=== PATIENT | female | born 1990 | race Caucasian/White ===

== ENCOUNTER 2018-08-12 05:38 | Inpatient (IN) ==
[2018-08-12] MEDS ORDERED: PEPCID IV PRN (05:44)
[2018-08-12] MEDS ORDERED: PEPCID PO ONE (05:44)
[2018-08-12] MEDS ORDERED: TYLENOL PO PRN (05:44)
[2018-08-12] MEDS ORDERED: REGLAN PO ONE (05:44)
[2018-08-12] MEDS ORDERED: STADOL IV PRN (05:44)
[2018-08-12] MEDS ORDERED: PEPCID PO PRN (05:44)
[2018-08-12] MEDS ORDERED: ZOFRAN IV PRN (05:44)
[2018-08-12] MEDS ORDERED: KEFZOL 1 GM/D5W 1 GM/50 ML IVPB IV PRN (05:44)
[2018-08-12] MEDS ORDERED: SODIUM CHLORIDE 0.9% INJ SCH (05:45)
[2018-08-12] MEDS ORDERED: PITOCIN 30 UNITS/NS 30 UNIT/500 ML IV.SOLN IV SCH ×2 (07:00→15:15)
[2018-08-12] MEDS: LR 1,000 ML IV SCH ×2 (07:40→08:45)
--- NOTE | 2018-08-12 08:06 | HISTORY AND PHYSICAL ---
HISTORY OF PRESENT ILLNESS: The patient is a 26-year-old white female, G 5, P 2, A 2, at 39 weeks and 1 day with a favorable cervix for induction of labor. care has been unremarkable. Group B strep culture was negative. PAST MEDICAL HISTORY: Alpha 1 antitrypsin antibody. PAST SURGICAL HISTORY: Cholecystectomy. PAST OB HISTORY: G 5, P 2, A 2, spontaneous vaginal delivery x2, spontaneous AB x2. 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 FAMILY HISTORY: Significant for diabetes mellitus. REVIEW OF SYSTEMS: Significant for migraines. SOCIAL HISTORY: Tobacco use: None. Alcohol use: None. MEDICATIONS: vitamins and iron. ALLERGIES: No known drug allergies. PHYSICAL EXAMINATION: VITAL SIGNS: Height 5 feet 7 inches, weight 191 pounds. Temperature 97.9 degrees, blood pressure 102/64, pulse of 72, respirations 20. heart rate in the 150s with positive accelerations. HEENT: Pupils equal, round, and reactive to light and accommodation. Extraocular movements intact. Oropharynx clear. NECK: Supple. No thyromegaly. LUNGS: Clear to auscultation. HEART: Regular rate and rhythm. ABDOMEN: Gravid, nontender. PELVIC: Cervix was 3.5, 50% -2 station. EXTREMITIES: No clubbing, cyanosis, or edema noted. NEUROLOGIC: Cranial nerves 2-12 grossly intact. Motor 5/5. DTRs 2+ bilaterally. ASSESSMENT/PLAN: A 26-year-old, 5, para 2, 2, at 39 and 1/7 weeks with favorable cervix for labor induction. The patient may have epidural and plan on a vaginal delivery. cc: Ethan Dominguez III, MD
[2018-08-12 08:10] LABS: BASO# 0.02 X1000 (0.0-0.2); BASO% 0.3 % (0.0-0.8); EOS# 0.26 X1000 (0.0-0.7); EOS% 3.4 % (0.0-10.0); HEMOGLOBIN 10.5 g/dL (12.0-16.0); IMM GRAN# 0.02 X1000 (0.0-0.04); IMM GRAN% 0.3 % (0.0-0.5); LYMPH# 2.02 X1000 (1.2-3.4); LYMPH% 26.4 % (20.5-51.1); MCH 28.5 PG (27-31); MCHC 32.8 g/dL (33-37); MCV 86.7 FL (81-99); MONO# 0.72 X1000 (0.11-0.59); MONO% 9.4 % (1.7-9.3); NEUT# 4.62 X1000 (1.4-6.5); NEUT% 60.2 % (42.2-75.2); PLT 117 X1000 (130-400); RBC 3.69 XMIL (4.2-5.4); RDW 14.3 % (11.5-14.5); WBC 7.66 X1000 (4.8-10.8)
[2018-08-12] MEDS ORDERED: NAROPIN 0.2% ONE (08:10)
[2018-08-12] MEDS ORDERED: FENTANYL-BUPIV-NS 2 MCG-0.1% 200 ML ONE (08:11)
[2018-08-12] MEDS ORDERED: FENTANYL-BUPIV-NS 2 MCG-0.1% 200 ML EPIDURAL SCH (09:00)
[2018-08-12] MEDS ORDERED: NAROPIN 0.2% INJ ONE (09:00)
[2018-08-12] MEDS ORDERED: MINERAL OIL TOP PRN (14:57)
[2018-08-12] MEDS ORDERED: XYLOCAINE-MPF 1% INJ PRN ×2 (14:57→15:13)
[2018-08-12] MEDS ORDERED: MINERAL OIL PO PRN (15:13)
[2018-08-12] MEDS ORDERED: AMBIEN PO PRN (15:13)
[2018-08-12] MEDS ORDERED: BOOSTRIX VACCINE IM ONE (15:13)
[2018-08-12] MEDS ORDERED: M-M-R II VACCINE SUBQ ONE (15:13)
[2018-08-12] MEDS ORDERED: BENADRYL IV PRN (15:13)
[2018-08-12] MEDS ORDERED: ATARAX PO PRN (15:13)
[2018-08-12] MEDS ORDERED: HYDROXYZINE IM PRN (15:13)
[2018-08-12] MEDS ORDERED: NORCO-5 PO PRN (15:13)
[2018-08-12] MEDS ORDERED: PITOCIN IM PRN (15:13)
[2018-08-12] MEDS ORDERED: PERI MEDS (DERMOPLAST/NUPERCAINAL/TUCKS) MISC PRN (15:13)
[2018-08-12] MEDS ORDERED: BENADRYL PO PRN (15:13)
[2018-08-12] MEDS ORDERED: CYTOTEC PO PRN (15:13)
[2018-08-12] MEDS ORDERED: PITOCIN 20 UNITS/NS 20 UNITS/1,000 ML IV.SOLN IV SCH (15:15)
--- NOTE | 2018-08-12 15:30 | OPERATIVE NOTE ---
PROCEDURE DATE: 08/12/2018 VAGINAL DELIVERY NOTE: Patient progressed to complete and pushing and had spontaneous vaginal delivery of a male , 6 pounds 15 ounces with 's of 9 and 10 at 1501 on 08/12/2018. Placenta delivered intact with 3 vessel cord. Cord blood samples obtained at this time. ESTIMATED BLOOD LOSS: 150 mL. ANESTHESIA: Epidural. COUNTS: All counts were correct x2. cc: Ethan Dominguez III, MD
[2018-08-12 18:02] LABS: URINE SOURCE VOIDED
[2018-08-12 18:10] LABS: BILIRUBIN URINE NEGATIVE (NEGATIVE); BLOOD URINE NEGATIVE (NEGATIVE); CLARITY SL. CLOUDY (CLEAR); COLOR YELLOW; GLUCOSE URINE NEGATIVE (NEGATIVE); KETONE URINE TRACE mg/dL (NEGATIVE); LEUKOCYTES URINE TRACE (NEGATIVE); NITRITE URINE NEGATIVE (NEGATIVE); PH URINE 6.5; PROTEIN URINE TRACE mg/dL (NEGATIVE); UROBILINOGEN URINE NORMAL
[2018-08-12] MEDS: MOTRIN PO PRN (18:15)
[2018-08-12 18:18] LABS: UR AMPHETAMINES QUAL NONE DETECTED (NONE DETECT); UR BARBITUATES QUAL NONE DETECTED (NONE DETECT); UR BENZODIAZEPIN QUAL NONE DETECTED (NONE DETECT); UR CANNABINOIDS QUAL NONE DETECTED (NONE DETECT); UR COCAINE QUAL NONE DETECTED (NONE DETECT); UR METHADONE QUAL NONE DETECTED (NONE DETECT); UR METHAMPHETAMINE QUAL NONE DETECTED (NONE DETECT); UR OPIATES QUAL NONE DETECTED (NONE DETECT); UR OXYCODONE QUAL NONE DETECTED (NONE DETECT); UR PCP QUAL NONE DETECTED (NONE DETECT); UR PROPOXYPHENE QUAL NONE DETECTED (NONE DETECT); UR TCA QUAL NONE DETECTED (NONE DETECT)
[2018-08-12] MEDS: PERICOLACE PO SCH (21:05)
[2018-08-12] MEDS: NORCO-10 PO PRN (21:05)
[2018-08-13] MEDS: MOTRIN PO PRN ×3 (01:51→20:32)
[2018-08-13] MEDS: NORCO-10 PO PRN ×2 (03:26→20:32)
[2018-08-13 06:23] LABS: BASO# 0.02 X1000 (0.0-0.2); BASO% 0.3 % (0.0-0.8); EOS# 0.27 X1000 (0.0-0.7); EOS% 3.4 % (0.0-10.0); HEMATOCRIT 30.9 % (37.0-47.0); HEMOGLOBIN 9.5 g/dL (12.0-16.0); IMM GRAN% 0.5 % (0.0-0.5); LYMPH# 2.21 X1000 (1.2-3.4); LYMPH% 27.8 % (20.5-51.1); MCH 27.1 PG (27-31); MCHC 30.7 g/dL (33-37); MCV 88.3 FL (81-99); MONO# 0.76 X1000 (0.11-0.59); MONO% 9.6 % (1.7-9.3); MPV 13.3 FL (7.4-10.4); NEUT# 4.65 X1000 (1.4-6.5); NEUT% 58.4 % (42.2-75.2); PLT 94 X1000 (130-400); RDW 14.2 % (11.5-14.5); WBC 7.95 X1000 (4.8-10.8)
[2018-08-13 06:24] LABS: IMM GRAN# 0.04 X1000 (0.0-0.04)
--- NOTE | 2018-08-13 07:41 | OB/GYN PROGRESS NOTE ---
Progress Note OB - . Patient Problems: Current Active Problems Problem Status Onset Vaginal delivery Acute Intrauterine Acute OB Progress Note: Vital Signs - 24 hr 08/12/18 10:45 08/12/18 15:20 08/12/18 15:30 Temperature 97.2 F L 98 F Pulse Rate 61 67 81 Respiratory Rate 20 20 20 Blood Pressure 115/62 116/55 Blood Pressure [Right Arm] 116/55 124/57 O2 Sat by Pulse Oximetry 97 96 98 08/12/18 15:40 08/12/18 15:50 08/12/18 16:00 Temperature Pulse Rate 69 55 L 60 Respiratory Rate 20 20 20 Blood Pressure Blood Pressure [Right Arm] 123/71 122/77 114/73 O2 Sat by Pulse Oximetry 98 99 100 08/12/18 16:10 08/12/18 16:20 08/12/18 18:30 Temperature 97.9 F Pulse Rate 60 60 57 L Respiratory Rate 20 20 20 Blood Pressure 116/72 113/68 Blood Pressure [Right Arm] 122/74 116/72 O2 Sat by Pulse Oximetry 99 100 96 08/12/18 19:29 08/13/18 01:51 08/13/18 04:00 Temperature 97.3 F L 97.1 F L Pulse Rate 64 66 Respiratory Rate 18 20 18 Blood Pressure 108/59 125/58 Blood Pressure [Right Arm] O2 Sat by Pulse Oximetry 99 Laboratory Results - last 24 hr 08/12/18 08/12/18 08/12/18 05:44 05:44 07:00 WBC 7.66 RBC 3.69 L Hgb 10.5 L Hct 32.0 L MCV 86.7 MCH 28.5 MCHC 32.8 L RDW Std Deviation 14.3 Plt Count 117 L MPV 13.0 H Immature Gran % (Auto) 0.3 Neut % (Auto) 60.2 Lymph % (Auto) 26.4 [place] % (Auto) 9.4 H Eos % (Auto) 3.4 Baso % (Auto) 0.3 Immature Gran # (Auto) 0.02 Neut # (Auto) 4.62 Lymph # (Auto) 2.02 [place] # (Auto) 0.72 H Eos # (Auto) 0.26 Baso # (Auto) 0.02 Urine Source Urine Color Urine Clarity Urine pH Ur Specific [place] Urine Protein Urine Ketones Urine Blood Urine Nitrite Urine Bilirubin Urine Urobilinogen Urine WBC Urine Glucose Urine Opiates Screen NONE DETECTED Ur Oxycodone Screen NONE DETECTED Urine Methadone Screen NONE DETECTED U Propoxyphene Qual NONE DETECTED Ur Barbituates Screen NONE DETECTED Ur Tricyclics Screen NONE DETECTED Ur Phencyclidine Scrn NONE DETECTED Ur Amphetamines Screen NONE DETECTED U Methamphetamines Scrn NONE DETECTED U Benzodiazepines Scrn NONE DETECTED Urine Cocaine Screen NONE DETECTED U Cannabinoids Screen NONE DETECTED RPR NON-REACTIVE 08/12/18 08/13/18 07:00 04:50 WBC 7.95 RBC 3.50 L Hgb 9.5 L Hct 30.9 L MCV 88.3 MCH 27.1 MCHC 30.7 L RDW Std Deviation 14.2 Plt Count 94 L MPV 13.3 H Immature Gran % (Auto) 0.5 Neut % (Auto) 58.4 Lymph % (Auto) 27.8 [place] % (Auto) 9.6 H Eos % (Auto) 3.4 Baso % (Auto) 0.3 Immature Gran # (Auto) 0.04 Neut # (Auto) 4.65 Lymph # (Auto) 2.21 [place] # (Auto) 0.76 H Eos # (Auto) 0.27 Baso # (Auto) 0.02 Urine Source VOIDED Urine Color YELLOW Urine Clarity SL. CLOUDY A Urine pH 6.5 Ur Specific [place] 1.020 Urine Protein TRACE A Urine Ketones TRACE Urine Blood NEGATIVE Urine Nitrite NEGATIVE Urine Bilirubin NEGATIVE Urine Urobilinogen NORMAL Urine WBC TRACE A Urine Glucose NEGATIVE Urine Opiates Screen Ur Oxycodone Screen Urine Methadone Screen U Propoxyphene Qual Ur Barbituates Screen Ur Tricyclics Screen Ur Phencyclidine Scrn Ur Amphetamines Screen U Methamphetamines Scrn U Benzodiazepines Scrn Urine Cocaine Screen U Cannabinoids Screen RPR PPD#1 s/p uncomp . Pt juan reg diet. Ambulating. No SOB, CP or leg pain. Decreased lochia. VSS AF Gen - pt in no apparent distress A&O x 3 ABD - soft, NT, ND, FF Extreme - no CCE HgB- 9.5 A/p - PPD#1 Cont PP care
[2018-08-13] MEDS: PERICOLACE PO SCH (20:32)
[2018-08-14] MEDS: NORCO-10 PO PRN (00:17)
--- NOTE | 2018-08-14 07:40 | OB/GYN PROGRESS NOTE ---
Progress Note OB - . Patient Problems: Current Active Problems Problem Status Onset Vaginal delivery Acute Intrauterine Acute OB Progress Note: Vital Signs - 24 hr 08/13/18 08:00 08/13/18 11:30 08/13/18 20:00 Temperature 97.8 F 96.8 F L 98.1 F Pulse Rate 63 60 72 Respiratory Rate 20 20 18 Blood Pressure 108/71 124/81 106/68 O2 Sat by Pulse Oximetry 100 99 97 08/14/18 00:00 Temperature 97.4 F L Pulse Rate 65 Respiratory Rate 18 Blood Pressure 95/53 O2 Sat by Pulse Oximetry 97 HPI: Pt seen and examined. Currently w/o complaints. Ambulating and urinating without difficulty. tolerating regular diet. +Bottle feeding, decreased lochia. VS: please see above GEN: NAD CV: RRR, +S1S2 RESP: CTA b/l ABD: soft, NTTP, FF below umbilicus EXT: neg CT ASSESSMENT: 27 yo PPD#2 s/p PLAN: -pain well controlled on PO pain meds -OOB-->ambulation -reg diet -continue routine PP care -plan for d/c home today
[2018-08-14 08:25] VITALS: BP 112/72
[2018-08-14] MEDS: MOTRIN PO PRN (08:38)
== END 2018-08-14 12:15 | disposition home or self-care (01) | DRG 807 ==
LOC: P.LD 05:38
PROVIDERS: ADMIT Obstetrics & Gynecology; ATTEND Obstetrics & Gynecology
CPT/HCPCS: 80104; 80301; 80305; 81003; 85025; 86592; A9270; G0431; G0434; G0477; J2405; J2590; J2795; J7120